=== PATIENT | female | born 1995 ===

== ENCOUNTER 2020-07-27 23:19 | Outpatient (CLI) | payer SELFPAY ==
[~2020-07-27] VITALS: Ht 154.9 cm; Wt 56.4 kg
[2020-07-27 23:33] VITALS: BP 124/65
[2020-07-28 00:03] LABS: MICROSCOPIC INDICATED
== END 2020-07-28 01:22 | disposition home or self-care (01) ==
LOC: LDOP 23:19
PROVIDERS: ATTEND Obstetrics & Gynecology
DX: O62.8 Other abnormalities of forces of labor (principal); O26.893 Other specified pregnancy related conditions, third trimester; R10.9 Unspecified abdominal pain; Z3A.32 32 weeks gestation of pregnancy
CPT/HCPCS: 59025; 81001; 87086

== ENCOUNTER 2020-08-15 09:37 | Outpatient (CLI) | payer BC ==
[2020-08-15 09:59] VITALS: BP 100/61
[2020-08-15 10:09] LABS: MICROSCOPIC NOT IND
[2020-08-15] MEDS ORDERED: BETAMETHASONE 6 MG/ML, 5ML IM ONE ×2 (11:00→11:47)
== END 2020-08-15 12:20 | disposition home or self-care (01) ==
LOC: LDOP 09:37
PROVIDERS: ATTEND Obstetrics & Gynecology
DX: O26.893 Other specified pregnancy related conditions, third trimester (principal); R10.9 Unspecified abdominal pain; Z3A.34 34 weeks gestation of pregnancy
CPT/HCPCS: 59025; 81003; 87086; 96372; J0702

== ENCOUNTER 2020-08-21 20:43 | Outpatient (CLI) | payer BC ==
[~2020-08-21] VITALS: Ht 154.9 cm; Wt 57.7 kg
[2020-08-21 21:10] LABS: MICROSCOPIC INDICATED
[2020-08-21 21:31] LABS: AMPHETAMINE SCREEN, URINE Negative (Negative); BARBITURATE SCREEN, URINE Negative (Negative); BENZODIAZEPINE SCREEN, URINE Negative (Negative); CANNABINOID SCREEN, URINE Negative (Negative); METHADONE SCREEN, URINE Negative (Negative); OPIATE SCREEN, URINE Negative (Negative); PROTEIN/CREATININE RATIO,URINE 147 (0-200); TOTAL PROTEIN,URINE RANDOM 11 mg/dL (0-12)
[2020-08-21 21:32] LABS: COCAINE SCREEN, URINE Negative (Negative)
== END 2020-08-21 23:15 | disposition home or self-care (01) ==
LOC: LDOP 20:43
PROVIDERS: ATTEND Obstetrics & Gynecology
DX: Z3A.35 35 weeks gestation of pregnancy (principal)
CPT/HCPCS: 59025; 76819; 80307; 81001; 82570; 84156; 87086; 87635

== ENCOUNTER 2020-08-29 20:44 | Outpatient (CLI) | payer BC ==
[2020-08-29 21:13] VITALS: BP 111/54
== END 2020-08-29 22:19 | disposition home or self-care (01) ==
LOC: LDOP 20:44
PROVIDERS: ATTEND Obstetrics & Gynecology
DX: O26.893 Other specified pregnancy related conditions, third trimester (principal); Z3A.36 36 weeks gestation of pregnancy
CPT/HCPCS: 59025; 87635

== ENCOUNTER 2020-09-03 20:51 | Outpatient (CLI) | payer BC ==
[~2020-09-03] VITALS: Ht 154.9 cm; Wt 58.2 kg
[2020-09-03 20:54] VITALS: BP 112/58
== END 2020-09-03 21:20 | disposition home or self-care (01) ==
LOC: LDOP 20:51
PROVIDERS: ATTEND Obstetrics & Gynecology
DX: O26.893 Other specified pregnancy related conditions, third trimester (principal); R10.9 Unspecified abdominal pain; Z3A.37 37 weeks gestation of pregnancy
CPT/HCPCS: 59025

== ENCOUNTER → 2020-09-11 | Outpatient (CLI) | payer BC | END | disposition home or self-care (01) | LOC: STAR 10:30 | PROVIDERS: ATTEND Obstetrics & Gynecology | DX: Z20.828 Contact with and (suspected) exposure to other viral communicable diseases (principal) | CPT/HCPCS: 87635 ==

== ENCOUNTER 2020-09-15 06:54 | Inpatient (IN) | payer BC ==
[~2020-09-15] VITALS: Ht 154.9 cm; Wt 62.2 kg
[2020-09-15] MEDS ORDERED: OXYTOCIN 30U/ 0.9% NaCL 500ML 500 ML IV ONE (07:30)
[2020-09-15] MEDS ORDERED: FENTANYL PF 100 MCG/2ML IV PRN (07:30)
[2020-09-15] MEDS ORDERED: SODIUM CITRATE/CITRIC ACID 30 ML UDC PO PRN (07:30)
[2020-09-15] MEDS ORDERED: SODIUM CHLORIDE FLUSH 10ML SYR IVF PRN (07:30)
[2020-09-15] MEDS ORDERED: LACTATED RINGERS 1,000 ML IV SCH ×3 (07:30→23:30)
[2020-09-15] MEDS ORDERED: ONDANSETRON 2MG/ML, 2ML IVPush PRN (07:30)
[2020-09-15] MEDS ORDERED: TERBUTALINE 1 MG/ML, 1ML IVPush PRN (07:30)
[2020-09-15] MEDS ORDERED: TERBUTALINE 1 MG/ML, 1ML SQ PRN (07:30)
[2020-09-15] MEDS ORDERED: MISOPROSTOL 25 MCG TABLET VG PRN ×2 (07:30→12:30)
[2020-09-15] MEDS ORDERED: OXYTOCIN 30U/ 0.9% NaCL 500ML 500 ML IV PRN (07:30)
[2020-09-15] MEDS ORDERED: METOCLOPRAMIDE 5 MG/ML, 2ML IVPush PRN (07:30)
[2020-09-15] MEDS ORDERED: D5%-LACTATED RINGERS 1,000 ML IV SCH (07:30)
[2020-09-15 07:39] LABS: BASOPHILS % (AUTO) 1 % (0-1); EOSINOPHILS % (AUTO) 1 % (1-7); LYMPHOCYTES % (AUTO) 18 % (22-44); MEAN CORPUSCULAR HEMOGLOBIN 30.5 pg (27.0-34.8); MEAN PLATELET VOLUME 8.9 fL (7.4-10.4); MONOCYTES % (AUTO) 7 % (2-9); NEUTROPHILS % (AUTO) 73 % (42-75); PLATELET COUNT 233 x10^3/uL (130-400); RED BLOOD COUNT 3.88 x10^6/uL (3.82-5.3); RED CELL DISTRIBUTION WIDTH 13.8 % (9.6-15.2)
[2020-09-15] MEDS ORDERED: NEWBORN KIT ONE (07:39)
[2020-09-15] MEDS ORDERED: LIDOCAINE 1%, 20ML ONE (07:40)
[2020-09-15] MEDS ORDERED: MISOPROSTOL 25 MCG TABLET ONE ×2 (07:42→12:18)
[2020-09-15] MEDS ORDERED: MISOPROSTOL 200 MCG TABLET ONE (07:42)
[2020-09-15] MEDS ORDERED: OXYTOCIN 30U/ 0.9% NaCL 500ML 500 ML ONE (07:42)
[2020-09-15 07:55] LABS: MD NO
[2020-09-15 07:58] VITALS: BP 96/52
[2020-09-15] MEDS ORDERED: EPHEDRINE 50 MG/ML, 1ML IVPush PRN ×2 (09:00→23:30)
[2020-09-15] MEDS ORDERED: NALOXONE 0.4 MG/ML, 1ML IVPush PRN ×2 (09:00→23:30)
[2020-09-15] MEDS ORDERED: FENTANYL/BUPIV./NS/PF 250 ML EPIDCONT SCH ×2 (09:00→23:30)
[2020-09-15] MEDS ORDERED: LACTATED RINGERS 1,000 ML IVBOLUS PRN ×2 (09:00→23:30)
[2020-09-15] MEDS ORDERED: FENTANYL PF 100 MCG/2ML ONE ×2 (19:21→21:11)
[2020-09-15] MEDS: FENTANYL PF 100 MCG/2ML IVPush PRN ×2 (19:26→21:15)
[2020-09-15] MEDS ORDERED: FENTANYL/BUPIV./NS/PF 250 ML EPIDCONT ONE (23:16)
[2020-09-15] MEDS ORDERED: BUPIVACAINE 0.25% ONE (23:17)
[2020-09-15] MEDS ORDERED: TERBUTALINE 1 MG/ML, 1ML ONE (23:55)
[2020-09-16] MEDS ORDERED: TERBUTALINE 1 MG/ML, 1ML ONE (03:26)
[2020-09-16] MEDS ORDERED: IBUPROFEN 600 MG TABLET ONE (09:50)
[2020-09-16] MEDS ORDERED: IBUPROFEN 800 MG TABLET ONE (09:53)
[2020-09-16] MEDS ORDERED: OXYTOCIN 30U/ 0.9% NaCL 500ML 500 ML ONE (09:53)
[2020-09-16] MEDS: IBUPROFEN 800 MG TABLET PO PRN ×2 (09:54→19:18)
[2020-09-16] MEDS ORDERED: MISOPROSTOL 200 MCG TABLET PR PRN (10:00)
[2020-09-16] MEDS ORDERED: SIMETHICONE 80 MG CHEW TAB PO PRN (10:00)
[2020-09-16] MEDS ORDERED: CARBOPROST TROMETHAMINE 250 MCG/ML, 1ML IM PRN (10:00)
[2020-09-16] MEDS ORDERED: METHYLERGONOVINE 0.2 MG/ML IM PRN (10:00)
[2020-09-16] MEDS ORDERED: OXYcodone/APAP 5/325MG TABLET PO PRN ×2 (10:00)
[2020-09-16] MEDS ORDERED: DOCUSATE 100 MG CAPSULE PO PRN (10:00)
[2020-09-16] MEDS ORDERED: ONDANSETRON 2MG/ML, 2ML IV PRN (10:00)
[2020-09-16] MEDS: OXYTOCIN 30U/ 0.9% NaCL 500ML 500 ML IV SCH ×2 (10:46→20:00)
[2020-09-16 11:00] VITALS: BP 125/72
[2020-09-16 16:15] VITALS: BP 120/69
[2020-09-16 19:15] VITALS: BP 134/89
[2020-09-16 19:29] LABS: MEAN CORPUSCULAR HEMOGLOBIN 30.5 pg (27.0-34.8); MEAN CORPUSCULAR HGB CONC 33.8 g/dL (32.4-35.8); MEAN PLATELET VOLUME 9.1 fL (7.4-10.4); PLATELET COUNT 194 x10^3/uL (130-400); RED BLOOD COUNT 3.56 x10^6/uL (3.82-5.3); RED CELL DISTRIBUTION WIDTH 14.1 % (9.6-15.2)
[2020-09-16 19:34] LABS: MD YES
[2020-09-16 20:25] LABS: <PLATELET ESTIMATE> ADEQUATE; <PLT MORPHOLOGY> NORMAL PLT MORPH; <RBC MORPHOLOGY> NORMAL; BANDS%(MANUAL) 8 % (0-7); EOS#(MANUAL) 0.21 x10^3/uL (0.0-0.4); EOS% (MANUAL) 1 % (1-7); LYMPH#(MANUAL) 1.28 x10^3/uL (1-3.4); LYMPHS% (MANUAL) 6 % (22-44); MONOS#(MANUAL) 1.92 x10^3/uL (0.3-2.7); MONOS% (MANUAL) 9 % (2-9); SEG#(MANUAL) 16.19 x10^3/uL (1.8-6.8); SEGS% (MANUAL) 76 % (42-75)
[2020-09-17 00:15] VITALS: BP 129/76
[2020-09-17] MEDS: IBUPROFEN 800 MG TABLET PO PRN (04:57)
[2020-09-17 05:00] VITALS: BP 135/72
[2020-09-17] MEDS: OXYTOCIN 30U/ 0.9% NaCL 500ML 500 ML IV SCH (06:00)
[2020-09-17 08:15] VITALS: BP 117/71
[2020-09-17] MEDS ORDERED: PRENATAL VIT/IRON/FA 1 EACH TABLET PO SCH (09:00)
[2020-09-17] MEDS ORDERED: IBUP-1223 PO (10:49)
== END 2020-09-17 11:05 | disposition home or self-care (01) | DRG 806 ==
LOC: LDIP 06:54 → 2NW 09-16 11:38
PROVIDERS: ADMIT Obstetrics & Gynecology; ATTEND Obstetrics & Gynecology
PROC: 10E0XZZ Delivery of Products of Conception, External Approach (ICD-10-PCS; principal; 2020-09-16)
PROC: 10907ZC Drainage of Amniotic Fluid, Therapeutic from Products of Conception, Via Natural or Artificial Opening (ICD-10-PCS; 2020-09-16)
PROC: 10H07YZ Insertion of Other Device into Products of Conception, Via Natural or Artificial Opening (ICD-10-PCS; 2020-09-16)
DX: O70.0 First degree perineal laceration during delivery (principal); D62 Acute posthemorrhagic anemia; Z37.0 Single live birth; O99.02 Anemia complicating childbirth; Z3A.39 39 weeks gestation of pregnancy; Z87.891 Personal history of nicotine dependence
CPT/HCPCS: 36415; 85025; 86592; 86850; 86900; G0378; J3010; J2590; J7120

== ENCOUNTER 2020-09-22 09:50 | Emergency (ER) | payer BC ==
[~2020-09-22] VITALS: Ht 154.9 cm; Wt 56.4 kg
[~2020-09-22 09:50] MED LIST: IBUP-1223 PO
--- NOTE | 2020-09-22 10:20 | NUR ---
PT TO ROOM FROM LOBBY
--- NOTE | 2020-09-22 10:40 | NUR ---
PT DROVE SELF, VSS, STATES , BREASTS ARE SWOLLEN WITH YELLOW DISCHARGE. PAIN IS 7/10
[2020-09-22 11:12] VITALS: BP 122/60
--- NOTE | 2020-09-22 11:12 | NUR ---
ASSUMED CARE FOR DISCHARGE ONLY Patient/Caregiver given discharge instructions and they have confirmed that they understand the instructions. Patient ambulatory with steady gait.
== END 2020-09-22 11:14 | disposition home or self-care (01) ==
LOC: ED 10:45
DX: N61.0 Mastitis without abscess (principal); F17.210 Nicotine dependence, cigarettes, uncomplicated
CPT/HCPCS: 99283; 99406

== ENCOUNTER 2021-02-13 11:16 | Emergency (ER) | payer SELFPAY ==
[~2021-02-13] VITALS: Ht 154.9 cm; Wt 57.0 kg
[2021-02-13 11:51] LABS: BASOPHILS % (AUTO) 1 % (0-1); EOSINOPHILS % (AUTO) 1 % (1-7); LYMPHOCYTES % (AUTO) 21 % (22-44); MEAN CORPUSCULAR HEMOGLOBIN 30.9 pg (27.0-34.8); MEAN CORPUSCULAR HGB CONC 33.3 g/dL (32.4-35.8); MEAN PLATELET VOLUME 8.1 fL (7.4-10.4); MONOCYTES % (AUTO) 6 % (2-9); NEUTROPHILS % (AUTO) 71 % (42-75); PLATELET COUNT 312 x10^3/uL (130-400); RED BLOOD COUNT 4.51 x10^6/uL (3.82-5.3); RED CELL DISTRIBUTION WIDTH 12.8 % (9.6-15.2)
[2021-02-13 11:55] LABS: MD NO
[2021-02-13 12:01] LABS: ALBUMIN 4.6 g/dL (3.4-5.0); ANION GAP 8 mmol/L (5-15); CALCIUM 8.9 mg/dL (8.5-10.1); CHLORIDE 103 mmol/L (98-107); CREATININE 0.75 mg/dL (0.55-1.02)
--- NOTE | 2021-02-13 12:59 | NUR ---
NO ANSWER FROM LOBBY
[2021-02-13 13:53] LABS: MICROSCOPIC AUTO
--- NOTE | 2021-02-13 14:07 | NUR ---
dr valladares spoke with dr tyler
[2021-02-13] MEDS ORDERED: HYDROcodone/APAP 5/325 TABLET PO ONE (14:30)
[2021-02-13] MEDS ORDERED: HYDROcodone/APAP 5/325 TABLET ONE (14:32)
[2021-02-13 14:37] VITALS: BP 114/61
--- NOTE | 2021-02-13 14:37 | NUR ---
PT MEDICATED PER ERP ORDER. VSS/UPDATED IN COMPUTER. CALL LIGHT WITHIN REACH.
== END 2021-02-13 15:03 | disposition home or self-care (01) ==
LOC: ED 14:51
DX: O26.891 Other specified pregnancy related conditions, first trimester (principal); R10.9 Unspecified abdominal pain; Z3A.10 10 weeks gestation of pregnancy
CPT/HCPCS: 36415; 76801; 80048; 81001; 82040; 84702; 85025; 86901; 99284